=== PATIENT | female | born 1995 | race Caucasian/White ===

== ENCOUNTER 2025-01-06 20:10 | Emergency (ER) | payer OTHER ==
[~2025-01-06] VITALS: Ht 157.5 cm; Wt 54.2 kg
[2025-01-06] MEDS: PROPARACAINE 0.5% OPHTH SOL 15ML OD ONE (23:58)
[2025-01-06] MEDS: FLUORESCEIN OPHTH 1MG STRIP OD ONE (23:58)
[2025-01-07] MEDS ORDERED: ERYT5OIN25 OU (00:40)
[2025-01-07 00:45] VITALS: BP 103/64; TEMP 97.2; O2SAT 99
[2025-01-07] MEDS: ERYTHROMYCIN OPHTH OINT OU ONE (01:00)
== END 2025-01-07 01:02 | disposition home or self-care (01) ==
LOC: M ED 20:10
DX: S05.02XA Injury of conjunctiva and corneal abrasion without foreign body, left eye, initial encounter (principal); S05.01XA Injury of conjunctiva and corneal abrasion without foreign body, right eye, initial encounter; Y92.9 Unspecified place or not applicable; Y93.9 Activity, unspecified; Y99.9 Unspecified external cause status; Z79.2 Long term (current) use of antibiotics